=== PATIENT | male | born 1985 | race Caucasian/White ===

== ENCOUNTER 2023-05-25 14:40 | Emergency (ER) | payer BC ==
[~2023-05-25] VITALS: Ht 177.8 cm; Wt 102.1 kg
[2023-05-25 14:49] VITALS: TEMP 98.1
[2023-05-25 15:49] LABS: APPEARANCE,URINE CLEAR (CLEAR); BILIRUBIN,URINE 1+ (NEGATIVE); BLOOD, URINE TRACE-INTA Ery/uL (NEGATIVE); COLOR,URINE YELLOW (YELLOW); KETONES,URINE NEGATIVE (NEGATIVE); LEUKOCYTE ESTERASE ,URINE NEGATIVE (NEGATIVE); NITRITE, URINE NEGATIVE (NEGATIVE); PROTEIN,URINE 2+ mg/dl (NEGATIVE); UGLUCOSE NEGATIVE (NEGATIVE)
[2023-05-25] MEDS ORDERED: DOXY100C2 PO (15:55)
[2023-05-25] MEDS ORDERED: AMOX-430 PO (15:55)
[2023-05-25] MEDS ORDERED: CEFTRIAXONE 1 G VIAL IM ONE (16:00)
[2023-05-25 16:08] LABS: ADD URINE CULTURE NO; BACTERIA,URINE Few /HPF (None Seen); RBC,URINE 0-2 /HPF (0-2); SQUAMOUS EPITHELIAL CELL,UR Rare /HPF (None Seen); WBC,URINE 0-2 /HPF (0-3)
[2023-05-25] MEDS ORDERED: CEFTRIAXONE 1 G VIAL ONE (16:17)
[2023-05-25] MEDS ORDERED: CEFTRIAXONE 500 MG VIAL ONE (16:18)
[2023-05-25] MEDS ORDERED: LIDOCAINE /MPF 1% VIAL 5 ML VIAL ONE (16:20)
[2023-05-25 18:01] VITALS: BP 125/65; O2SAT 100
[2023-05-26 07:07] LABS: RAPID PLASMA REAGIN QUAL. Non Reactive (Non Reactive)
[2023-05-27 10:10] LABS: CHLAMYDIA TRACHOMATIS NAA Negative (Negative); NEISSERIA GONORRHOEAE NAA Negative (Negative)
== END 2023-05-25 17:59 | disposition home or self-care (01) ==
LOC: ER 15:06
DX: N49.2 Inflammatory disorders of scrotum (principal); L73.1 Pseudofolliculitis barbae; I10 Essential (primary) hypertension; Z79.899 Other long term (current) drug therapy
CPT/HCPCS: 99285; 86592; 86593; 96372; 76870; 81001; 36415; 87491 ×2; 87591; J0696 ×2; J3490

== ENCOUNTER 2023-10-26 14:21 | Emergency (ER) | payer BC ==
[~2023-10-26] VITALS: Ht 180.3 cm; Wt 96.2 kg
[~2023-10-26 14:21] MED LIST: AMOX-430 PO; DOXY100C2 PO
[2023-10-26] MEDS ORDERED: KETOROLAC TROMETHAMINE INJ 30 MG/ML VIAL ONE (15:21)
[2023-10-26] MEDS ORDERED: BACLOFEN (10 MG) 10 MG TABLET ONE (15:21)
[2023-10-26] MEDS: KETOROLAC TROMETHAMINE INJ 60 MG/2 ML VIAL IM ONE (15:31)
[2023-10-26] MEDS: BACLOFEN (10 MG) 10 MG TABLET PO ONE (15:32)
[2023-10-26] MEDS ORDERED: BACL10TA PO (16:11)
[2023-10-26] MEDS ORDERED: KETO10TA2 PO (16:11)
[2023-10-26] MEDS ORDERED: HYDR-4209 PO (16:11)
[2023-10-26] MEDS ORDERED: HYDROMORPHONE 1 MG/1 ML DISP.SYRIN ONE (16:22)
[2023-10-26] MEDS: HYDROMORPHONE 1 MG/1 ML DISP.SYRIN IV ONE (16:31)
[2023-10-26 16:33] VITALS: BP 124/74; TEMP 97.9; O2SAT 98
== END 2023-10-26 16:34 | disposition home or self-care (01) ==
LOC: ER 14:37
DX: S86.811A Strain of other muscle(s) and tendon(s) at lower leg level, right leg, initial encounter (principal); I10 Essential (primary) hypertension; Z79.899 Other long term (current) drug therapy; W01.0XXA Fall on same level from slipping, tripping and stumbling without subsequent striking against object, initial encounter; Y93.89 Activity, other specified; Y92.89 Other specified places as the place of occurrence of the external cause; Y99.8 Other external cause status
CPT/HCPCS: 99284; 96374; 73502; 73564; 96372; J1885; J1170

== ENCOUNTER 2023-10-29 13:12 | Emergency (ER) | payer BC ==
[~2023-10-29] VITALS: Ht 180.3 cm; Wt 96.2 kg
[~2023-10-29 13:12] MED LIST changes: +BACL10TA PO; +HYDR-4209 PO; +KETO10TA2 PO
[2023-10-29 13:39] VITALS: BP 139/76; TEMP 98.6; O2SAT 99
[2023-10-29] MEDS ORDERED: HYDR-3972 PO (14:25)
[2023-10-29] MEDS ORDERED: LIDO30AD10 TP (14:25)
[2023-10-29] MEDS ORDERED: METH-649 PO (14:25)
[2023-10-29] MEDS ORDERED: ACET-2605 PO (14:25)
== END 2023-10-29 14:36 | disposition home or self-care (01) ==
LOC: ER 13:22
DX: S79.821A Other specified injuries of right thigh, initial encounter (principal); I10 Essential (primary) hypertension; Z79.899 Other long term (current) drug therapy; W01.0XXA Fall on same level from slipping, tripping and stumbling without subsequent striking against object, initial encounter; Y93.89 Activity, other specified; Y92.89 Other specified places as the place of occurrence of the external cause; Y99.8 Other external cause status

== ENCOUNTER 2023-11-26 21:44 | Emergency (ER) | payer OTHER, BC ==
[~2023-11-26] VITALS: Ht 182.9 cm; Wt 83.9 kg
[~2023-11-26 21:44] MED LIST changes: +ACET-2605 PO; +HYDR-3972 PO; +LIDO30AD10 TP; +METH-649 PO
[2023-11-26 22:28] VITALS: BP 145/89; TEMP 98.6; O2SAT 98
[2023-11-26] MEDS ORDERED: TDAP [DIPH/PERTUSSIS/TET] 0.5 ML VIAL IM ONE (22:30)
== END 2023-11-26 22:28 ==
LOC: ER 22:25
DX: S00.83XA Contusion of other part of head, initial encounter (principal); S00.511A Abrasion of lip, initial encounter; R45.1 Restlessness and agitation; I10 Essential (primary) hypertension; E11.9 Type 2 diabetes mellitus without complications; X58.XXXA Exposure to other specified factors, initial encounter; Y93.89 Activity, other specified; Y92.89 Other specified places as the place of occurrence of the external cause; Y99.8 Other external cause status

== ENCOUNTER 2023-11-27 01:07 | Emergency (ER) | payer BC, OTHER ==
[~2023-11-27] VITALS: Ht 175.3 cm; Wt 81.6 kg
[2023-11-27 01:37] LABS: BASOPHILS % (AUTO) 0.2 % (0.0-2.0); EOSINOPHILS % (AUTO) 0.2 % (0.0-6.0); HEMATOCRIT 43 % (39-51); HEMOGLOBIN 13.7 g/dL (13.5-17.5); LYMPHOCYTES # (AUTO) 1.5 K/uL (0.8-4.8); LYMPHOCYTES % (AUTO) 10.3 % (20.0-44.0); MEAN CORPUSCULAR HEMOGLOBIN 27 PG (26.0-33.0); MEAN CORPUSCULAR HGB CONC 32 g/dl (31.0-36.0); MEAN CORPUSCULAR VOLUME 82 fL (80-96); MONOCYTES # (AUTO) 0.6 K/uL (0.1-1.30); MONOCYTES % (AUTO) 4.5 % (2.0-12.0); NEUTROPHILS # (AUTO) 12.1 K/uL (1.8-8.9); NEUTROPHILS % (AUTO) 84.8 % (43.0-81.0); PLATELET COUNT (AUTO) 343 K/uL (150-450); RED BLOOD CELL COUNT(AUTO) 5.17 MIL/uL (4.5-6.0); RED CELL DISTRIBUTION WIDTH 18.9 % (11.5-15.0); WHITE BLOOD COUNT (AUTO) 14.2 K/uL (4.3-11.0)
[2023-11-27 01:46] LABS: CALCIUM, SERUM 8.7 mg/dL (8.5-10.1); CARBON DIOXIDE 22 mmol/L (21-32); CHLORIDE 105 mmol/L (98-107); CREATININE 1.1 mg/dL (0.6-1.3); GLUCOSE 98 mg/dL (74-106); POTASSIUM 4.1 mmol/L (3.5-5.1); SODIUM SERUM 145 mmol/L (136-145); UREA NITROGEN, BLOOD 12 mg/dL (7-18)
[2023-11-27 03:16] VITALS: BP 138/62; TEMP 98.5; O2SAT 99
== END 2023-11-27 03:18 ==
LOC: ER 01:24
DX: R07.89 Other chest pain (principal); I10 Essential (primary) hypertension
CPT/HCPCS: 36415; 71045-TC; 80048-TC; 84484-TC; 85025-TC